=== PATIENT | male | born 2000 | race Caucasian/White ===

== ENCOUNTER 2022-07-26 16:41 | Emergency (ER) | payer OTHER, SELFPAY ==
--- NOTE | ~2022-07-26 | XR_ITS ---
EXAMINATION: XR foot LT min 3V DATE: 07/26/2022 17:25 INDICATION: Left foot pain, initial encounter TECHNIQUE: Dorsoplantar, lateral, and 2 oblique views of the left foot were obtained. COMPARISON: None. FINDINGS: There is an acute, traumatic, closed, transverse fracture in the base of the fifth metatars al which extends to the articular surface. Soft tissue swelling is seen near the fracture. No additio nal fracture is identified. IMPRESSION: 1. Acute fracture in the base of the fifth metatarsal. Reviewed, dictated and finalized at location [facility]
[2022-07-26 16:57] VITALS: BP 144/64; PULSE 115; RESP 18; TEMP 36.9; O2SAT 96
--- NOTE | 2022-07-26 17:06 | ED.LOWEXIN ---
HPI - Extremity Injury (Lower) General Chief Complaint: Extremity Injury, Lower Stated Complaint: left foot injury Time Seen by Provider: 07/26/22 16:59 History of Present Illness HPI Narrative: Patient is a 22-year-old male here for evaluation of left foot pain for the past day. Patient states that he was playing badminton and he landed with the foot in inversion, noting a snap in his foot. He denies any pain yesterday but noted pain today. States that he has been unable to bear weight on the foot due to pain. Has not taken any medicine for the pain. No numbness, tingling, nausea, vomiting. Related Data Allergies Allergy/AdvReac Type Severity Reaction Status Date / Time No Known Allergies Allergy Verified 07/26/22 17:05 Review of Systems Review of Systems: Gen: Denies fevers or chills Eyes: Denies eye pain or visual change ENT: Denies congestion Respiratory: Denies shortness of breath or cough CV: Denies chest pain or palpitations GI: Denies abdominal pain nausea, emesis or diarrhea denies burning, urgency, frequency or hematuria Musculoskeletal: reports left foot pain. Neuro: Denies numbness, tingling, weakness or focal weakness Skin: Denies rash Except as documented, all other systems reviewed and negative Exam Narrative: APPEARANCE: Well appearing, no pain in distress, well-nourished. Head: Normocephalic and atraumatic. EYES: PERRLA/EOMI, conjunctivae clear NOSE: No nasal drainage EARS: External ear normal in appearance THROAT: Oropharynx is clear. Mucous membranes are moist. NECK: Supple. No adenopathy, no masses. RESPIRATORY: Airway patent, respirations nonlabored. Clear to auscultation bilaterally, no rales, rhonchi, wheezing. CARDIOVASCULAR: Regular rate and rhythm without murmurs, rubs, or gallops. ABDOMINAL: Normoactive bowel sounds. Soft, nontender, nondistended. No rebound tenderness or guarding. MUSCULOSKELETAL: Tender to palpation along the base of the fifth metatarsal of left foot with overlying swelling. Full range of motion of the foot without pain. Compartments are soft. No bony tenderness to medial or lateral malleoli, tibia-fibula or knee. NEURO: Normal speech. No focal neurologic deficits. SKIN: Skin is warm and dry. No rashes. PSYCHIATRIC: Normal affect/mood. Course Vital Signs Vital signs: Vital Signs Temperature 98.4 F 07/26/22 16:57 Pulse Rate 115 H 07/26/22 16:57 Respiratory Rate 18 07/26/22 16:57 Blood Pressure 144/64 H 07/26/22 16:57 Pulse Oximetry 96 07/26/22 16:57 Temperature 98.4 F 07/26/22 16:57 Pulse Rate 115 H 07/26/22 16:57 Respiratory Rate 18 07/26/22 16:57 Blood Pressure 144/64 H 07/26/22 16:57 Pulse Oximetry 96 07/26/22 16:57 MDM - Extremity Injury (Lower) MDM Narrative Medical decision making narrative: Patient is a 22-year-old male here for evaluation of foot pain [facility]. He has bony tenderness on palpation of the fifth metatarsal and he has a acute fracture in the area on the x-ray. He has strong pedal pulses, brisk capillary refill, and his compartments are soft. He was replaced in a posterior short leg splint, given crutches, and was instructed to follow-up with orthopedics. He was given pain medicine and reasons to return to the ED. Discharge Plan Discharge Clinical Impression: Fracture of fifth metatarsal bone of left foot Patient Disposition: Home, Self-Care Condition: Stable Instructions: Antibiotic Form, Foot Fracture in Adults (ED), Splint Care (ED) Additional Instructions: You were found to have a fracture at the base of your fifth metatarsal which is a bone in your foot. Please refer to the handout on how to take care of your splint. For severe pain, you may use the prescription pain medicine. Follow-up with orthopedics next week. Return if you develop fevers, nausea or vomiting. Prescriptions: New hydrocodone-acetaminophen 5-325 mg tablet 1 tablet PO Q6H PRN
[2022-07-26] MEDS: IBUPROFEN 600 MG TABLET PO (17:28)
== END 2022-07-26 18:14 | disposition home or self-care (01) ==
PROVIDERS: Emergency Provider Emergency Medicine
DX: S92.352A Displaced fracture of fifth metatarsal bone, left foot, initial encounter for closed fracture (principal); X50.9XXA Other and unspecified overexertion or strenuous movements or postures, initial encounter; Y93.73 Activity, racquet and hand sports
CPT/HCPCS: 29515; 73630; 99284; A9270